=== PATIENT | female | born 2000 | race Caucasian/White ===

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

== ENCOUNTER → 2018-02-06 | Outpatient (REF) | payer OTHER ==
[2018-02-06 11:51] LABS: C REACTIVE PROTEIN QUANTITATIV < 0.30 MG/DL (0.00-0.30); CHOLESTEROL LEVEL 153 MG/DL (<200); CHOLESTEROL RISK RATIO 3.477 (<5); HDL CHOLESTEROL 44 MG/DL (>40); LDL CHOLESTEROL 94 MG/DL (<100); NON-HDL-C 109 MG/DL; TRIGLYCERIDES LEVEL 73 MG/DL (<150)
== END ==
LOC: M SFHCPLAZ 10:00
DX: L73.9 Follicular disorder, unspecified (principal)

== ENCOUNTER → 2018-03-05 | Outpatient (REF) | payer OTHER ==
[2018-03-06 13:24] LABS: CHLAMYDIA DNA AMPLIFICATION NEGATIVE (NEGATIVE); GC DNA AMPLIFICATION NEGATIVE (NEGATIVE)
== END ==
LOC: M SFHCWAGY 10:52
PROVIDERS: ATTEND Nurse Practitioner Family
DX: Z11.3 Encounter for screening for infections with a predominantly sexual mode of transmission (principal)

== ENCOUNTER → 2018-08-28 | Outpatient (CLI) | payer OTHER ==
--- NOTE | 2018-08-28 14:59 | REP ---
BILATERAL BREAST ULTRASOUND: Bilateral breast ultrasound performed for bilateral palpable abnormalities. Right breast was scanned between 9 and 2-o'clock at the site of reported palpable abnormality. There is dense fibroglandular tissue without a discrete cystic or solid mass. Left breast was scanned between 4 and 6-o'clock. Dense fibroglandular tissue is also seen in this region with no cystic or solid nodule. IMPRESSION: At the site of the reported palpable abnormalities bilaterally are dense fibroglandular tissue without a discrete cystic or solid mass. Clinical correlation and followup is recommended. Electronically Signed by Javier Perkins MD 08/29/2018 09:23 A
== END ==
LOC: M RAD 13:08
PROVIDERS: ATTEND Physician Assistant Medical
DX: N64.4 Mastodynia (principal); N63.0 Unspecified lump in unspecified breast

== ENCOUNTER → 2019-07-10 | Outpatient (REF) | payer OTHER ==
[2019-07-10 17:15] LABS: HEMATOCRIT 38.3 % (36.0-47.0); HEMOGLOBIN 12.6 g/dl (12.0-15.5); MEAN CORPUSCULAR HEMOGLOBIN 29.2 pg (27.0-33.0); MEAN CORPUSCULAR HGB CONC 32.9 g/dl (32.0-36.5); MEAN CORPUSCULAR VOLUME 88.9 fl (80.0-96.0); PLATELET COUNT, AUTOMATED 355 10^3/uL (150-450); RED BLOOD COUNT 4.31 10^6/uL (4.00-5.40); WHITE BLOOD COUNT 12.5 10^3/uL (4.0-10.0)
[2019-07-10 17:58] LABS: HIV 1&2 SCREEN CENTAUR NEGATIVE (NEGATIVE)
[2019-07-13 10:53] LABS: HEPATITIS B SURFACE ANTIGEN NEGATIVE (NEGATIVE); HEPATITIS C VIRUS ABY INDEX 0.2 INDEX (<0.8)
== END ==
LOC: M PLALAB 15:16
PROVIDERS: ATTEND Advanced Practice Midwife
DX: Z34.01 Encounter for supervision of normal first pregnancy, first trimester (principal)

== ENCOUNTER → 2019-08-05 | Outpatient (REF) | payer OTHER ==
[2019-08-08 13:31] LABS: CHLAMYDIA DNA AMPLIFICATION NEGATIVE (NEGATIVE); GC DNA AMPLIFICATION NEGATIVE (NEGATIVE)
== END ==
LOC: M SFHCWAGY 10:25
PROVIDERS: ATTEND Advanced Practice Midwife
DX: Z34.01 Encounter for supervision of normal first pregnancy, first trimester (principal)

== ENCOUNTER → 2019-09-23 | Outpatient (CLI) | payer OTHER ==
--- NOTE | 2019-09-24 03:26 | REP ---
REASON: anatomy. Multiple ultrasonographic images of the gravid uterus show a single living intrauterine gestation in the transverse head to maternal left position. Doppler interrogation of the heart shows a heart rate of 143 beats per minute. The placenta is anterior and not low lying. The subjective amniotic fluid volume is within normal limits. The cervix measures 3.6 cm in length and is closed. Evaluation of the maternal adnexal spaces showed no abnormalities. anatomical structures seen to be within normal limits are as follows: Thalami, cavum septum pellucidum, cerebellum, cisterna magna, spine, stomach, three-vessel umbilical cord, and upper and lower extremities. The upper lip, four-chamber heart, ventricular outflow tracts, kidneys, cord insertion, and urinary bladder were suboptimally visualized. CHART: BPD 4.6 cm = 20 weeks 0 days HC 17.0 cm = 19 weeks 4 days AC 14.6 cm = 19 weeks 6 days FL 3.2 cm = 20 weeks 0 days The estimated weight is 320 grams, which is at the 55th percentile for a 19-week 5-day gestational age. IMPRESSION: Single living intrauterine gestation, as described above, with an estimated gestational age of 19 weeks 5 days via composite criteria and an estimated date of delivery of 02/12/2020 by today's exam. No anomalies were detected; however, I recommend a followup examination to better visualize those structures not well seen today, as described above.
== END ==
LOC: M WHC 15:55
PROVIDERS: ATTEND Specialist
DX: Z34.02 Encounter for supervision of normal first pregnancy, second trimester (principal); Z3A.19 19 weeks gestation of pregnancy

== ENCOUNTER → 2019-10-14 | Outpatient (CLI) | payer OTHER ==
--- NOTE | 2019-12-03 12:25 | REP ---
FOLLOW-UP OBSTETRICAL ULTRASOUND COMPARISON: 09/23/2019. FINDINGS: Ultrasound examination demonstrates single live intrauterine in breech presentation. Placenta noted anteriorly and grade 1 without evidence for placenta previa or abruption. Amniotic fluid volume is normal. Cervix measures 3.6 cm in length and appears closed. Gestational age by last menstrual period (LMP) 23 weeks 0 days. Gestational age by current measurements 22 weeks 6 days. Estimated weight 556 grams (44th percentile). heart rate equals 150 beats per minute. Limited anatomical assessment demonstrates normal stomach, kidneys, bladder, cardiac ventricular outflow tracts, three-vessel cord/cord insertion, and facial features. Limited evaluation of the four chamber heart again noted due to positioning. IMPRESSION: Single live intrauterine in breech presentation demonstrating appropriate weight and growth. Limited evaluation of the four chamber heart views again due to positioning. MTDD
== END ==
LOC: M WHC 16:37
PROVIDERS: ATTEND Advanced Practice Midwife
DX: O32.1XX0 Maternal care for breech presentation, not applicable or unspecified (principal); Z3A.22 22 weeks gestation of pregnancy

== ENCOUNTER → 2019-11-27 | Outpatient (CLI) | payer OTHER ==
[2019-11-27 13:35] LABS: BASO % 0.4 % (0.0-1.0); EOS % 0.3 % (0.0-3.0); HEMATOCRIT 37.9 % (36.0-47.0); HEMOGLOBIN 12.1 g/dl (12.0-15.5); LYMPH # 1.8 10^3/uL (1.5-5.0); LYMPH % 18.3 % (24.0-44.0); MEAN CORPUSCULAR HEMOGLOBIN 28.9 pg (27.0-33.0); MEAN CORPUSCULAR HGB CONC 31.9 g/dl (32.0-36.5); MEAN CORPUSCULAR VOLUME 90.7 fl (80.0-96.0); MONO # 0.7 10^3/uL (0.0-0.8); NEUTROPHILS # 7.3 10^3/uL (1.5-8.5); NEUTROPHILS % 73.1 % (36.0-66.0); PLATELET COUNT, AUTOMATED 313 10^3/uL (150-450); RED BLOOD COUNT 4.18 10^6/uL (4.00-5.40)
== END ==
LOC: M PLALAB 10:19
PROVIDERS: ATTEND Advanced Practice Midwife
DX: Z34.02 Encounter for supervision of normal first pregnancy, second trimester (principal); Z3A.00 Weeks of gestation of pregnancy not specified

== ENCOUNTER → 2020-01-14 | Outpatient (REF) | payer OTHER | LOC: M SFHCWAGY 12:56 | PROVIDERS: ATTEND Obstetrics & Gynecology | DX: Z34.03 Encounter for supervision of normal first pregnancy, third trimester (principal) ==

== ENCOUNTER 2020-01-29 14:31 | Inpatient (IN) | payer OTHER ==
[~2020-01-29] VITALS: Ht 157.5 cm; Wt 67.9 kg
[2020-01-29] VITALS (15 sets, daily range): BP systolic 101–129; BP diastolic 63–83
[2020-01-29] MEDS ORDERED: PRENTAB9 PO ×2 (15:16)
[2020-01-29] MEDS ORDERED: LACTATED RINGER'S 1000 ML IV STA (15:35)
--- NOTE | 2020-01-29 15:52 | HPEPDOC ---
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: No pertinent history Past Medical History Surgical History: Denies/None Family History Significant Family History: Diabetes, Heart disease, Hypertension Social History Marital Status: Family situation: Spouse/partner home Psychosocial History: No pertinent psych hx * Smoker: non-smoker Alcohol: Denies Drugs: denies Abuse Violence Screening Have you been hit/kicked/slapp: No Have you been sexually assault: No Imunizations Tdap status: current Influenza Status: current Allergies Coded Allergies: No Known Allergies (Unverified , 01/29/20) Medications Scheduled No.137/Iron/Folic Acd ( Vitamin Tablet) 1 Each Tablet, 1 TAB PO DAILY Physical Examination Physical Examination GENERAL: Alert and oriented times three. BREAST: . ABDOMEN: Gravid and non-tender to touch. FETUS: Is vertex (VTX) by sterile vaginal examination (SVE), fetus is vertex (VTX) by Sin. EFW5.5-6# HEART RATE: Regular rate and rhythm. LUNGS: Clear to auscultation (CTA). EXTREMITIES: No edema. No clonus. Deep tendon reflexes (DTRs) + 2. Vital Signs/I&O Vital Signs Date Time Temp Pulse Resp B/P (MAP) Pulse Ox O2 Delivery O2 Flow Rate FiO2 01/29/20 14:51 97.7 105 18 126/75 (92) Laboratory Data 24H [facility] Laboratory Tests 2 01/29/20 14:35: Serology Scanned Report Hepatitis B Testing Pertinent Laboratoy Data Blood Type: O+ RBC Antibody Screen: Negative HIV: Negative Hepatitis B: Negative Hepatitis C: Negative Rapid Plasma Reagin: Nonreactive Rubella: Immune Chlamydia/Gonorrhea: Negative Group B Streptococcus: Negative Glucose Tolerance Test: 69 Anatomy Ultrasound Ultrasound Date: Sep 23, 2019 Placenta Location: Anterior Normal Anatomy: Yes Placenta Previa: No Estimated Weight (grams): 320 (55%) Other Ultrasounds 07/10/2019 dating 9w2d 10/14/2019 f/u anatomy, poor visualization of heart. EFW 556gm, 44% 01/29/2020 growth EFW 2630gm, <3%. DELFIN 13.4 s/d ratio 2.65 Steroid Therapy Steroid Therapy: No Vaginal Examination Dilation: 2cm Effacement: 80% Station: -1 Cervical Consistency: Medium Cervical Position: Posterior Presentation: Cephalic presentation Assessment Heart Rate (FHR): 135 Variability: Moderate Accelerations: Positive Decelerations: None Tocometer Contractions: No Assessment/Plan Assessment Vashti is a 19-year-old (G)1 para (P)0-0-0-0 at 38+2 weeks by 9-week ultrasound. Presents to Labor and Delivery (L&D) induction of labor due to IUGR noted on US. Reports good movement. 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 Counseled on cooks catheter, misoprostol, Pitocin and induction of labor (IOL). Lactated Ringers (LR): Bolus 500 mL, then saline lock. Plans to labor adlib Anticipate normal spontaneous delivery (). C-S as appropriate. Ami Blue CNM Jan 29, 2020 15:52
[2020-01-29 16:04] LABS: HEMATOCRIT 34.5 % (36.0-47.0); HEMOGLOBIN 11.3 g/dl (12.0-15.5); MEAN CORPUSCULAR HEMOGLOBIN 27.6 pg (27.0-33.0); MEAN CORPUSCULAR HGB CONC 32.8 g/dl (32.0-36.5); MEAN CORPUSCULAR VOLUME 84.1 fl (80.0-96.0); PLATELET COUNT, AUTOMATED 341 10^3/uL (150-450); WHITE BLOOD COUNT 13.7 10^3/uL (4.0-10.0)
--- NOTE | 2020-01-29 17:06 | IPNPDOC ---
Text Note Date of Service The patient was seen on 01/29/20. NOTE Cooks catheter placed, inflated with 60/40NS Pt tolerated well. Will Start pitocin after dinner FH Cat I, mild irregular UC VS,Fishbone, I+O VS, Fishbone, I+O Laboratory Tests 01/29/20 15:10 Vital Signs Date Time Temp Pulse Resp B/P (MAP) Pulse Ox O2 Delivery O2 Flow Rate FiO2 01/29/20 14:51 97.7 105 18 126/75 (92) Ami Blue CNM Jan 29, 2020 17:06
[2020-01-29] MEDS ORDERED: OXYTOCIN DRIP 30 UNITS in IV 1 EA IV SCH (17:15)
[2020-01-29] MEDS: LR 1,000 ML IV SCH (17:29)
[2020-01-29] MEDS ORDERED: PROMETHAZINE INJ 25 MG/ML VIAL (J2550) IV ONE (17:45)
[2020-01-29] MEDS ORDERED: BUTORPHANOL 2 MG/ML INJ (J0595) IV ONE (17:45)
--- NOTE | 2020-01-29 22:54 | IPNPDOC ---
Text Note Date of Service The patient was seen on 01/29/20. NOTE Progress Remains comfortable after stadol/phenergan Pitocin @ 6mu UC 2-3 minutes x 60 seconds FH 130, Cat I SVE, bulb in vagina and removed. 5/80/-2, moderate bloody show. Considering epidural VS,Fishbone, I+O VS, Fishbone, I+O Laboratory Tests 01/29/20 15:10 Vital Signs Date Time Temp Pulse Resp B/P (MAP) Pulse Ox O2 Delivery O2 Flow Rate FiO2 01/29/20 21:58 63 110/64 (79) 01/29/20 18:29 18 01/29/20 18:20 Room Air 01/29/20 17:27 98.3 Ami Blue CNM Jan 29, 2020 22:54
[2020-01-30] VITALS (11 sets, daily range): BP systolic 100–135; BP diastolic 55–78
[2020-01-30] MEDS ORDERED: PROMETHAZINE INJ 25 MG/ML VIAL (J2550) IV ONE (01:30)
[2020-01-30] MEDS ORDERED: BUTORPHANOL 2 MG/ML INJ (J0595) IV ONE (01:30)
[2020-01-30] MEDS: LR 1,000 ML IV SCH (01:32)
[2020-01-30 03:21] LABS: CORD GAS ABE V -5.7; CORD GAS HCO3 V 18.8 MEQ/L; CORD GAS O2 SAT V 90.3 %; CORD GAS PCO2 V 34.4 mmHg; CORD GAS PH V 7.355 UNITS; CORD GAS PO2 V 44.6 mmHg; CORD GAS SBC V 19.7 MEQ/L; CORD GAS TCO2 V 19.8 MEQ/L
[2020-01-30 03:23] LABS: CORD GAS ABE A -5.4; CORD GAS HCO3 A 17.6 MEQ/L; CORD GAS O2 SAT A 99.7 %; CORD GAS PH A 7.402 UNITS; CORD GAS PO2 A 133.1 mmHg; CORD GAS SBC A 20.1 MEQ/L; CORD GAS TCO2 A 18.5 MEQ/L
[2020-01-30] MEDS ORDERED: miSOPROStol 200 MCG TAB (S0191) PR ONE (03:30)
[2020-01-30] MEDS ORDERED: IBUPROFEN 600MG TAB PO PRN (03:30)
[2020-01-30] MEDS ORDERED: METHYLERGONOVINE MALEATE 0.2 MG TAB PO PRN (03:30)
[2020-01-30] MEDS ORDERED: ANUSOL HC CREAM 30GM TOP PRN (03:30)
[2020-01-30] MEDS ORDERED: OXYTOCIN DRIP 30 UNITS in IV 1 EA IV SCH (03:30)
[2020-01-30] MEDS ORDERED: ACETAMINOPHEN TAB 650MG DOSE (2X325MG) PO PRN (03:30)
[2020-01-30] MEDS ORDERED: DOCUSATE SODIUM 100 MG CAP PO PRN (03:30)
[2020-01-30] MEDS ORDERED: RHOGAM 300 MCG (1500 IU) INJ (J2790) IM SCH (03:30)
[2020-01-30] MEDS ORDERED: BENZOCAINE 20% HEMORRHOIDAL OINTMENT 28GM TUBE TOP PRN (03:30)
[2020-01-30] MEDS ORDERED: MOM 30ML SUSPENSION UDC PO PRN (03:30)
[2020-01-30] MEDS ORDERED: MEASLES,MUMPS,RUBELLA VACCINE INJ (MMR-II) (90707) SC SCH (03:30)
--- NOTE | 2020-01-30 03:46 | DNPDOC ---
[facility] Delivery Note Delivery Note DATE OF DELIVERY: 01/30/2020 PREDELIVERY DIAGNOSIS: 38+2/7 weeks' gestation and labor. IUGR POST DELIVERY DIAGNOSIS: Delivered. PROCEDURE: Spontaneous vaginal delivery. PROVIDER: Ami Blue CNM ANESTHESIA: None ESTIMATED BLOOD LOSS: 300 mL. FINDINGS: 5 pound 11 ounce, 2570gm female , Score 9/9, nuchal cord times 1 around neck an body. Compound presentation Left posterior arm. DELIVERY SUMMARY: Patient is a 19-year-old 1 now para 1-0-0-1 who was admitted to labor and delivery for induction of labor due to IUGR. She received pitocin with cook's catheter and labor did progress. She utilized stadol and phenergan for labor coping. SROM clear fluid 2314. Fully dilated 0240. Viable female delivered ZOHAIB @ 0309, compound with left posterior arm via somersault maneuver through nuchal and body cord. Spontaneous respiration, transitioned on maternal abdomen. Cord gases arterial 7.402/-5.4 and venous 7.355/-5.7. Cord doubly clamped and cut by FOB under my direction once pulsations ceased. Placenta berry, intact with 3v cord @ 0315. Fundus boggy despite IV pitocin bolus and massage. Misoprostol 1000mcg OR given with excellent control of bleeding. EBL 300ml. Cervix, vagina, perineum intact. Sponge, sharp and instrument count correct. Ami Blue CNM Jan 30, 2020 03:37
[2020-01-30] MEDS: ACETAMINOPHEN 500 MG TAB PO PRN ×3 (04:39→18:29)
[2020-01-30] MEDS: IBUPROFEN 800 MG TAB PO PRN ×2 (04:40→14:14)
[2020-01-30] MEDS: PRENATAL VITAMINS CHEWABLE TABLET PO SCH (08:10)
[2020-01-30] MEDS ORDERED: SLF 3 ML SYR IV PRN (18:45)
[2020-01-30] MEDS ORDERED: miSOPROStol 200 MCG TAB (S0191) As Ordered ONE (21:43)
[2020-01-30] MEDS ORDERED: SLF 3 ML SYR IV SCH (22:00)
[2020-01-31] MEDS: IBUPROFEN 800 MG TAB PO PRN ×2 (01:47→17:01)
[2020-01-31 06:00] VITALS: BP 120/78
[2020-01-31] MEDS: PRENATAL VITAMINS CHEWABLE TABLET PO SCH (08:29)
[2020-01-31] MEDS ORDERED: ACET-683 PO (08:59)
[2020-01-31] MEDS ORDERED: IBUP80TA PO (08:59)
[2020-01-31 17:20] VITALS: BP 119/79
== END 2020-01-31 18:27 | disposition home or self-care (01) | DRG 807 ==
LOC: M LDI 14:31 → M OBS 01-30 05:25
PROVIDERS: ADMIT Advanced Practice Midwife; ATTEND Advanced Practice Midwife
PROC: 3E033VJ Introduction of Other Hormone into Peripheral Vein, Percutaneous Approach (ICD-10-PCS; 2020-01-29)
PROC: 10E0XZZ Delivery of Products of Conception, External Approach (ICD-10-PCS; principal; 2020-01-30)
DX: O36.5930 Maternal care for other known or suspected poor fetal growth, third trimester, not applicable or unspecified (principal); Z37.0 Single live birth; Z3A.38 38 weeks gestation of pregnancy; O69.81X0 Labor and delivery complicated by cord around neck, without compression, not applicable or unspecified; O32.6XX0 Maternal care for compound presentation, not applicable or unspecified

== ENCOUNTER → 2020-01-29 | Outpatient (CLI) | payer OTHER ==
[~2020-01-29] MED LIST: ACET-683 PO; IBUP80TA PO; PRENTAB9 PO
--- NOTE | 2020-01-29 12:48 | REP ---
INDICATION: O26.843 UTERINE SIZE DATE DISCREPANCY,GROWTH. COMPARISON: 12/07/2019. TECHNIQUE: Real-time sonographic evaluation of the gravid uterus performed. FINDINGS: Estimated gestational age is30 weeks 2 days, EDC 02/10/2020. Today's measurements indicate suboptimal growth. Presentation: Cephalic Placenta anterior, grade 3, without evidence of placenta previa. heart rate is recorded at 143 beats per minute. Amniotic fluid is subjectively normal. DELFIN 13.4, normal range 7.3-23.5. Closed cervical length is measured at 3.0 cm. SD ratio umbilical artery 2.65, normal 1.54-3.34. RI 0.62, normal 0.42-0.70. Biometry chart: BPD: 89 mm, 35 weeks 6 days, 15th percentile. HC: 313 mm, 35 weeks 1 days, less than 5th percentile AC: 306 mm, 34 weeks 4 days, less than 5th percentile Femur length: 71 mm, 36 weeks 2 days, 22nd percentile HC to AC ratio: 1.02, normal range 0.90-1.09. Estimated weight: 2630g, less than 3rd percentile. IMPRESSION: Viable single intrauterine gestation as above. Suboptimal growth. <Electronically signed by Javier Perkins > 01/29/20 [id number]
== END ==
LOC: M WHC 11:45
PROVIDERS: ATTEND Obstetrics & Gynecology
DX: O26.843 Uterine size-date discrepancy, third trimester (principal); Z3A.35 35 weeks gestation of pregnancy

== ENCOUNTER → 2020-04-14 | Outpatient (REF) | payer OTHER | LOC: M SFHCWAGY 13:03 | PROVIDERS: ATTEND Advanced Practice Midwife | DX: Z12.4 Encounter for screening for malignant neoplasm of cervix (principal) | CPT/HCPCS: G0123; G0463 ==

== ENCOUNTER → 2020-04-26 | Outpatient (REF) | payer OTHER ==
[2020-04-26 18:03] LABS: BASO # 0.1 10^3/uL (0.0-0.2); BASO % 0.7 % (0.0-1.0); EOS # 0.1 10^3/uL (0.0-0.5); EOS % 0.5 % (0.0-3.0); HEMATOCRIT 40.9 % (36.0-47.0); HEMOGLOBIN 12.8 g/dl (12.0-15.5); LYMPH # 2.9 10^3/uL (1.5-5.0); LYMPH % 31.5 % (24.0-44.0); MEAN CORPUSCULAR HEMOGLOBIN 27.6 pg (27.0-33.0); MEAN CORPUSCULAR HGB CONC 31.3 g/dl (32.0-36.5); MEAN CORPUSCULAR VOLUME 88.1 fl (80.0-96.0); MONO # 0.7 10^3/uL (0.0-0.8); MONO % 7.5 % (2.0-8.0); NEUTROPHILS # 5.4 10^3/uL (1.5-8.5); NEUTROPHILS % 59.4 % (36.0-66.0); PLATELET COUNT, AUTOMATED 372 10^3/uL (150-450); RED BLOOD COUNT 4.64 10^6/uL (4.00-5.40); WHITE BLOOD COUNT 9.2 10^3/uL (4.0-10.0)
[2020-04-26 18:07] LABS: ALBUMIN 4.2 GM/DL (3.2-5.2); ALT/SGPT 21 U/L (12-78); BILIRUBIN,TOTAL 0.3 MG/DL (0.2-1.0); BLOOD UREA NITROGEN 16 MG/DL (7-18); CALCIUM LEVEL 9.4 MG/DL (8.5-10.1); CARBON DIOXIDE LEVEL 26 MEQ/L (21-32); CHLORIDE LEVEL 105 MEQ/L (98-107); CHOLESTEROL LEVEL 183 MG/DL (<200); CHOLESTEROL RISK RATIO 2.951 (<5); CREATININE FOR GFR 0.76 MG/DL (0.55-1.30); GLOMERULAR FILTRATION RATE > 60.0 (>60); GLUCOSE, FASTING 71 MG/DL (70-100); HDL CHOLESTEROL 62 MG/DL (>40); LDL CHOLESTEROL 110 MG/DL (<100); NON-HDL-C 121 MG/DL; POTASSIUM SERUM 4.3 MEQ/L (3.5-5.1); SODIUM LEVEL 138 MEQ/L (136-145); TOTAL PROTEIN 7.9 GM/DL (6.4-8.2); TRIGLYCERIDES LEVEL 54 MG/DL (<150)
== END ==
LOC: M SFHCPLAZ 15:10
PROVIDERS: ATTEND Physician Assistant Medical
DX: Z00.00 Encounter for general adult medical examination without abnormal findings (principal); Z13.220 Encounter for screening for lipoid disorders
CPT/HCPCS: 36415; 80053; 80061; 85025; G0463

== ENCOUNTER → 2020-06-28 | Outpatient (REF) | payer OTHER | LOC: M SFHCWAGY 13:31 | PROVIDERS: ATTEND Advanced Practice Midwife | DX: Z12.4 Encounter for screening for malignant neoplasm of cervix (principal) ==